=== PATIENT | male | born 1995 | race Hispanic/Latino ===

== ENCOUNTER 2022-05-19 23:40 | Emergency (ER) | payer OTHER ==
[~2022-05-19] VITALS: Ht 170.2 cm; Wt 81.8 kg
[2022-05-20] MEDS ORDERED: CHLO1.4S7 PO (07:44)
[2022-05-20] MEDS ORDERED: AMOX500C PO (07:44)
[2022-05-20 07:45] VITALS: BP 129/86
[2022-05-20] MEDS ORDERED: AMOXICILLIN 500 MG CAP PO ONE (07:50)
== END 2022-05-20 08:00 | disposition home or self-care (01) ==
LOC: M ED 23:40
DX: J02.0 Streptococcal pharyngitis (principal)

== ENCOUNTER → 2022-08-06 | Outpatient (REF) | payer OTHER ==
[~2022-08-06] MED LIST: AMOX500C PO; CHLO1.4S7 PO
[2022-08-06 17:19] LABS: APPEARANCE, URINE MANUAL CLEAR (CLEAR)
[2022-08-06 17:20] LABS: BILIRUBIN, URINE MANUAL NEGATIVE (NEGATIVE); BLOOD URINE MANUAL NEGATIVE (NEGATIVE); COLOR, URINE MANUAL LT YELLOW (YELLOW); GLUCOSE, URINE (UA) MANUAL NEGATIVE (NEGATIVE); KETONE, URINE MANUAL NEGATIVE (NEGATIVE); LEUKOCYTE ESTERASE, URINE MAN NEGATIVE (NEGATIVE); NITRITE, URINE MANUAL NEGATIVE (NEGATIVE); PROTEIN, URINE MANUAL NEGATIVE (NEGATIVE); SPECIFIC GRAVITY,URINE MANUAL 1.005 (1.002-1.035); UROBILINOGEN, URINE MANUAL NORMAL (NORMAL)
[2022-08-06 19:30] LABS: GC DNA AMPLIFICATION NEGATIVE (NEGATIVE)
== END ==
LOC: M LAB REF 16:23
PROVIDERS: ATTEND Physician Assistant Medical
DX: N39.0 Urinary tract infection, site not specified (principal)